=== PATIENT | female | born 1965 | race American Indian/Alaskan Native ===

== ENCOUNTER 2019-04-27 08:03 | Day surgery (SDC) | payer MEDICARE, MEDICAID ==
[2019-04-20 13:32] LABS: BASOPHILS # (AUTO) 0.1 X10'3 (0-0.2); BASOPHILS % (AUTO) 0.8 % (0-1); EOSINOPHILS # (AUTO) 0.6 X10'3 (0-0.9); EOSINOPHILS % (AUTO) 5.1 % (0-6); LYMPHOCYTES # (AUTO) 4.7 X10'3 (1.1-4.8); MEAN CORPUSCULAR HEMOGLOBIN 30.3 PG (27.0-31.0); MEAN CORPUSCULAR HGB CONC 34.5 g/dL (33.0-36.5); MEAN PLATELET VOLUME 9.7 FL (7.4-10.4); MONOCYTES # (AUTO) 0.7 X10'3 (0-0.9); MONOCYTES % (AUTO) 6.1 % (2-12); NEUTROPHILS # (AUTO) 5.6 X10'3 (1.8-7.7); PRE OP HEMATOCRIT 42.9 % (35.0-45.0); PRE OP HEMOGLOBIN 14.8 g/dL (12.0-16.0); PRE OP PLATELET COUNT 177 X10'3 (140-440); RED BLOOD COUNT 4.87 X10'6 (4.20-5.60); RED CELL DISTRIBUTION WIDTH 13.3 % (11.5-14.5)
[2019-04-20 13:43] LABS: ALBUMIN 3.8 G/DL (3.4-5.0); ALKALINE PHOSPHATASE 109 IU/L (46-116); BLOOD UREA NITROGEN 20 MG/DL (7-18); BUN/CREATININE RATIO 25.6 (6.6-38.0); CHLORIDE 107 MMOL/L (99-107); CREATININE 0.78 MG/DL (0.40-0.90); PRE OP ALT 25 U/L (30-65); PRE OP ANION GAP 10 (8-16); PRE OP AST 16 U/L (10-37); PRE OP BILIRUB, TOTAL 0.4 MG/DL (0.0-1.0); PRE OP GLUCOSE 130 MG/DL (70-104); PRE OP POTASSIUM 3.9 MMOL/L (3.4-5.1); PRE OP SODIUM 141 MMOL/L (135-145); TOTAL CARBON DIOXIDE 24.5 MMOL/L (24-32); TOTAL PROTEIN 7.6 G/DL (6.4-8.2); eGFR 78 ML/MIN
[~2019-04-27] VITALS: Ht 152.4 cm; Wt 102.1 kg
[~2019-04-27 08:03] MED LIST: BACL20TA PO; BUPIVAcaine/PF 2.5mg/ml (0.25%) 10ml vial ONE; DOCU-148 PO; ESCI5TAB PO; IBUP-1984 PO; LIDOcaine 0.5% (5mg/ml) 50ml vial ONE; LYR75C PO; NORCO10T PO; SIMV-42 PO; albuterol 2.5 MG/3 ML nebule NEB ONE; cefazolin/dext.iso 2gm/50ml 50 ML IV ONE; famotidine 20mg tablet PO ONE; ringers solution, lacted 1,000 ML IV SCH
[2019-04-27 09:10] VITALS: BP 107/47
[2019-04-27] MEDS ORDERED: hydrALAZINE 20mg/ml inj. IV PRN (09:45)
[2019-04-27] MEDS ORDERED: ondansetron/PF 4mg/2ml inj IV PRN (09:45)
[2019-04-27] MEDS ORDERED: ringers solution, lacted 1,000 ML IV SCH (09:45)
[2019-04-27] MEDS ORDERED: morphine 2 MG/ML inj. syringe IV PRN (09:45)
[2019-04-27] MEDS ORDERED: morphine 4 MG/ML inj SYRINge IV PRN (09:45)
[2019-04-27] MEDS ORDERED: fentaNYL/PF 50MCG/1 ML 2ML syringe IV PRN ×2 (09:45)
[2019-04-27] MEDS ORDERED: labetalol 20mg/4ml (5mg/ml) syringe IV PRN (09:45)
[2019-04-27] MEDS ORDERED: propofol 10mg/ml 20ml vial IV ONE (11:30)
[2019-04-27 11:51] VITALS: BP 115/70
--- NOTE | 2019-04-27 11:51 | NUR ---
Received from OR via [facility] , accompanied by Anesthesiologist LIANG and report given by Anesthesiolgist. PATIENT WITH 20G PIV IN LEFT UE RUNNING LR AT 100. DENIES PAIN AT THIS TIME. RIGHT WRIST DRESSING IS CDI GONSALVES. NEGATIVE FOR PAIN. PATIENT ON ROOM AIR. Addendum: 04/27/19 at 1200 by Erik Chatman RN, RN Amended: Links added.
[2019-04-27 12:01] VITALS: BP 118/68
[2019-04-27 12:11] VITALS: BP 117/69
--- NOTE | 2019-04-27 12:21 | NUR ---
ALL DC CRITERIA HAS BEEN MET. IV TAKEN OUT WITHOUT COMPLICATIONS. ALL INSTRUCTIONS COVERED AND ALL QUESTIONS ANSWERED. DRESSINGS CDI. OUT VIA WHEELCHAIR TO PERSONAL VEHICLE WHERE PATIENT WAS SECURED IN AND DRIVEN HOME BY FAMILY. Addendum: 04/27/19 at 1225 by Erik Chatman RN, RN Amended: Links added.
== END 2019-04-27 12:21 | disposition home or self-care (01) ==
LOC: PAS 08:03
PROVIDERS: ATTEND Orthopaedic Surgery Hand Surgery
DX: G56.03 Carpal tunnel syndrome, bilateral upper limbs (principal); G47.33 Obstructive sleep apnea (adult) (pediatric); G62.9 Polyneuropathy, unspecified; E66.01 Morbid (severe) obesity due to excess calories; Z68.41 Body mass index [BMI] 40.0-44.9, adult; Z90.710 Acquired absence of both cervix and uterus; Z98.890 Other specified postprocedural states; Z87.891 Personal history of nicotine dependence; Z85.41 Personal history of malignant neoplasm of cervix uteri; Z85.3 Personal history of malignant neoplasm of breast; Z88.5 Allergy status to narcotic agent; Z79.899 Other long term (current) drug therapy; Z72.89 Other problems related to lifestyle
CPT/HCPCS: 29848; 36415; 80053; 82948; 85025; 93005; J2001; J2704; J3490; A4215; A7000; J7120

== ENCOUNTER 2019-11-12 06:01 | Day surgery (SDC) | payer MEDICARE, MEDICAID ==
[2019-11-05 14:42] LABS: BASOPHILS # (AUTO) 0.1 X10'3 (0-0.2); BASOPHILS % (AUTO) 1.2 % (0-1); EOSINOPHILS # (AUTO) 0.2 X10'3 (0-0.9); EOSINOPHILS % (AUTO) 2.5 % (0-6); LYMPHOCYTES # (AUTO) 3.6 X10'3 (1.1-4.8); LYMPHOCYTES % (AUTO) 38.5 % (21-51); MEAN CORPUSCULAR HEMOGLOBIN 30.2 PG (27.0-31.0); MEAN CORPUSCULAR HGB CONC 34.1 g/dL (33.0-36.5); MEAN CORPUSCULAR VOLUME 88.6 FL (78-98); MEAN PLATELET VOLUME 9.1 FL (7.4-10.4); MONOCYTES # (AUTO) 0.6 X10'3 (0-0.9); MONOCYTES % (AUTO) 6.6 % (2-12); NEUTROPHILS # (AUTO) 4.8 X10'3 (1.8-7.7); NEUTROPHILS % (AUTO) 51.2 % (42-75); PRE OP HEMATOCRIT 42.9 % (35.0-45.0); PRE OP HEMOGLOBIN 14.6 g/dL (12.0-16.0); PRE OP PLATELET COUNT 180 X10'3 (140-440); RED BLOOD COUNT 4.84 X10'6 (4.20-5.60); RED CELL DISTRIBUTION WIDTH 13.5 % (11.5-14.5)
[2019-11-05 15:00] LABS: ALKALINE PHOSPHATASE 117 IU/L (46-116); BLOOD UREA NITROGEN 20 MG/DL (7-18); BUN/CREATININE RATIO 27.8 (6.6-38.0); CALCIUM 9.2 MG/DL (8.5-10.1); CHLORIDE 104 MMOL/L (99-107); CREATININE 0.72 MG/DL (0.40-0.90); PRE OP ALT 40 U/L (30-65); PRE OP ANION GAP 8 (8-16); PRE OP AST 23 U/L (10-37); PRE OP BILIRUB, TOTAL 0.4 MG/DL (0.0-1.0); PRE OP GLUCOSE 118 MG/DL (70-104); PRE OP POTASSIUM 4.2 MMOL/L (3.4-5.1); PRE OP SODIUM 139 MMOL/L (135-145); TOTAL PROTEIN 8.1 G/DL (6.4-8.2); eGFR 85 ML/MIN
[~2019-11-12] VITALS: Ht 152.4 cm; Wt 108.9 kg
[2019-11-12] VITALS (7 sets, daily range): BP systolic 120–138; BP diastolic 63–79
[~2019-11-12 06:01] MED LIST changes: +ASPI-1071 PO; +ATOR20TA66 PO; -BUPIVAcaine/PF 2.5mg/ml (0.25%) 10ml vial ONE; +CLOP75TA15 PO; -DOCU-148 PO; +HYDR-4353 PO; -LIDOcaine 0.5% (5mg/ml) 50ml vial ONE; +NITR0.4T51 SL; -NORCO10T PO; -SIMV-42 PO; -albuterol 2.5 MG/3 ML nebule NEB ONE
[2019-11-12] MEDS ORDERED: BUPIVAcaine/PF 2.5mg/ml (0.25%) 10ml vial ONE (06:42)
[2019-11-12] MEDS ORDERED: LIDOcaine 0.5% (5mg/ml) 50ml vial ONE (07:39)
[2019-11-12] MEDS ORDERED: ringers solution, lacted 1,000 ML IV SCH (07:48)
[2019-11-12] MEDS ORDERED: proCHLORperazine 10 MG/2 ml inj IV PRN (07:50)
[2019-11-12] MEDS ORDERED: morphine 4 MG/ML inj SYRINge IV PRN (07:50)
[2019-11-12] MEDS ORDERED: hydrALAZINE 20mg/ml inj. IV PRN (07:50)
[2019-11-12] MEDS ORDERED: meperidine/PF 25mg/ml syringe IV PRN (07:50)
[2019-11-12] MEDS ORDERED: ondansetron/PF 4mg/2ml inj IV PRN (07:50)
[2019-11-12] MEDS ORDERED: HYDROmorphone inj. 0.5 MG/0.5 ML DISP.SYRIN IV PRN ×2 (07:50)
[2019-11-12] MEDS ORDERED: acetaminophen 1,000mg/100ml IV 100 ML IV PRN (07:50)
[2019-11-12] MEDS ORDERED: labetalol 20mg/4ml (5mg/ml) syringe IV PRN (07:50)
[2019-11-12] MEDS ORDERED: morphine 2 MG/ML inj. syringe IV PRN (07:50)
[2019-11-12] MEDS ORDERED: fentaNYL/PF 50MCG/1 ML 2ML syringe ONE (08:49)
[2019-11-12] MEDS ORDERED: propofol inj 20 ML IV ONE (09:09)
[2019-11-12] MEDS ORDERED: midazolam 2 mg/2 ml injection ONE (09:09)
--- NOTE | 2019-11-12 09:15 | NUR ---
Received from OR via BED, accompanied by Anesthesiologist DR RETANA and report given by Anesthesiolgist. PATIENT A&OX4, DENIES PAIN, V/S WNL, NEUROVASCULAR CHECKS INTACT, 20G PIV RUE, SCD ON, DRESSING TO LEFT WRIST CDI ELEVATED WITH ICEBAG APPLIED.
--- NOTE | 2019-11-12 09:55 | NUR ---
PATIENT A&OX4, DENIES PAIN, V/S WNL, NEUROVASCULAR CHECKS INTACT, 20G PIV RUE D/C, SCD OFF, DRESSING TO LEFT WRIST CDI ELEVATED WITH ICEBAG APPLIED. I HAVE REVIEWED D/C INSTRUCTIONS WITH PATIENT AND FAMILY AND THEY HAVE VERBALIZED UNDERSTANDING. PATIENT D/C HOME WITH ALL BELONGINGS AND FAMILY GAVE TRANSPORT HOME.
== END 2019-11-12 09:55 | disposition home or self-care (01) ==
LOC: PAS 06:01
PROVIDERS: ATTEND Orthopaedic Surgery Hand Surgery
DX: G56.02 Carpal tunnel syndrome, left upper limb (principal); G47.33 Obstructive sleep apnea (adult) (pediatric); I25.2 Old myocardial infarction; F32.9 Major depressive disorder, single episode, unspecified; E78.5 Hyperlipidemia, unspecified; G43.909 Migraine, unspecified, not intractable, without status migrainosus; E66.9 Obesity, unspecified; Z68.42 Body mass index [BMI] 45.0-49.9, adult; Z98.890 Other specified postprocedural states; Z87.891 Personal history of nicotine dependence; Z90.710 Acquired absence of both cervix and uterus; Z85.3 Personal history of malignant neoplasm of breast; Z85.41 Personal history of malignant neoplasm of cervix uteri; Z95.5 Presence of coronary angioplasty implant and graft; Z88.5 Allergy status to narcotic agent; Z79.01 Long term (current) use of anticoagulants; Z79.899 Other long term (current) drug therapy; Z72.89 Other problems related to lifestyle; Z20.828 Contact with and (suspected) exposure to other viral communicable diseases
CPT/HCPCS: 29848; 36415; 80053; 82948; 85025; 85610; 85730; 87635; J2001; J2250; J2704; J3010; J3490; A4215; A7000; J7120

== ENCOUNTER 2024-09-11 11:01 | Outpatient (CLI) | payer MEDICARE, MEDICAID ==
[~2024-09-11 11:01] MED LIST changes: -cefazolin/dext.iso 2gm/50ml 50 ML IV ONE; -famotidine 20mg tablet PO ONE; -ringers solution, lacted 1,000 ML IV SCH
--- NOTE | 2024-09-11 14:52 | RADIOLOGY REPORT ---
CLINICAL HISTORY: RIGHT KNEE PAIN. Medial compartment joint space narrowing and osteoarthritis change s. Locking and popping. COMPARISON: None TECHNIQUE: Multisequence multiplanar MRI images of the right knee were obtained without contrast. FINDINGS: Cruciate ligaments: ACL and PCL are intact. Extensor mechanism: Attenuated, indistinct fibers of the ACL, may be sequela of chronic sprain or par tial tear. PCL is intact. Collateral ligaments: Medial and lateral collateral ligaments are intact and otherwise unremarkable. Menisci: Obliquely oriented tear of the posterior horn of the medial meniscus. There is adjacent lobu lated T2 hypointense signal along the posterior aspect of the posterior horn of the medial meniscus, may be due to displaced meniscal tissue or possibly adjacent loose bodies. There is blunting of the f ree edge of the body of the medial meniscus. There is horizontal tear of the body of the medial menis cus extending to the tibial articular surface. Possible flap component of the tear extending slightly into the adjacent inferior gutter. Focal blunting of the free edge of the posterior horn of the late ral meniscus, suspected obliquely oriented tear involving zone 3 and possibly zone 2. Cartilage: Chondral thinning of the medial and lateral compartments with areas of full-thickness jamila dral loss of the weight-bearing surface of the medial femoral condyle and adjacent portions of the me dial tibial plateau. Areas of near full-thickness chondral loss are seen at the weight-bearing surfac e of the lateral femoral condyle. Mild chondral fraying of the patellofemoral compartment. Bones: No acute fracture or focal marrow contusion. Joint fluid: No significant joint effusion. Other: Lobulated T2 hyperintense structures posterior to the intercondylar region and extending adjac ent to the popliteal artery and vein. Differential considerations would include ganglion cysts and/or lymph nodes. IMPRESSION: 1. Medial and lateral meniscal tears as detailed above. 2. 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 3. Attenuated ACL, may be sequela of chronic sprain or partial tear. No secondary signs of acute ACL injury. Correlate with clinical findings. 4. Lobulated T2 hyperintense structures posterior to the intercondylar region and extending adjacent to the popliteal artery and vein. Differential considerations would include ganglion cysts and/or lym ph nodes. Postcontrast imaging could be obtained to further characterize if clinically indicated. 5. Additional findings as described above.
== END 2024-09-11 23:59 | disposition home or self-care (01) ==
LOC: MRI02 11:01
PROVIDERS: ATTEND Anesthesiology Pain Medicine
DX: S83.241A Other tear of medial meniscus, current injury, right knee, initial encounter (principal); M25.561 Pain in right knee; X58.XXXA Exposure to other specified factors, initial encounter; Y93.89 Activity, other specified; Y92.89 Other specified places as the place of occurrence of the external cause; Y99.8 Other external cause status; S83.281A Other tear of lateral meniscus, current injury, right knee, initial encounter; M94.261 Chondromalacia, right knee; M25.461 Effusion, right knee
CPT/HCPCS: 73721